=== PATIENT | female | born 1970 | race Caucasian/White ===

== ENCOUNTER 2018-03-28 22:21 | Emergency (ER) | payer OTHER ==
[2018-03-28 22:28] VITALS: BP 126/74; PULSE 94; TEMP 98.5; BMI 38.2
--- NOTE | 2018-03-28 23:44 | PDOC ---
Attending Attestation - HPI HPI: 03/28/18 23:52 The patient is a 47 year old female, with a significant PMH of DM, who presents to the emergency department with one week of neck pain. The patient denies any recent injuries or trauma. The patient states she believes the neck pain is from her tonsils secondary to pain when swallowing. The patient denies taking any medications for the neck pain. The patient denies chest pain, shortness of breath, headache and dizziness. Denies fever, chills, nausea, vomit, diarrhea and constipation. Denies dysuria, frequency, urgency and hematuria. Allergies: NKA - Physicial Exam PE: 03/28/18 23:52 GENERAL: Well developed, well nourished. Awake and alert. No acute distress. HEENT: (+) Right tonsil slightly more enlarged than left. Normocephalic, atraumatic. PERRLA, EOMI. No conjunctival pallor. Sclera are non-icteric. Moist mucous membranes. Oropharynx is clear. NECK: Supple. Full ROM. No JVD. Carotid pulses 2+ and symmetric, without bruits. No thyromegaly. No lymphadenopathy. CARDIOVASCULAR: Regular rate and rhythm. No murmurs, rubs, or gallops. Distal pulses are 2+ and symmetric. PULMONARY: No evidence of respiratory distress. Lungs clear to auscultation bilaterally. No wheezing, rales or rhonchi. ABDOMINAL: Soft. Non-tender. Non-distended. No rebound or guarding. No organomegaly. Normoactive bowel sounds. MUSCULOSKELETAL Normal range of motion at all joints. No bony deformities or tenderness. No CVA tenderness. EXTREMITIES: No cyanosis. No clubbing. No edema. No calf tenderness. SKIN: Warm and dry. Normal capillary refill. No rashes. No jaundice. NEUROLOGICAL: Alert, awake, appropriate. Cranial nerves 2-12 intact. No deficits to light touch and temperature in face, upper extremities and lower extremities. No motor deficits in the in face, upper extremities and lower extremities. Normoreflexic in the upper and lower extremities. Normal speech. Toes are down- going bilaterally. Gait is normal without ataxia. PSYCHIATRIC: Cooperative. Good eye contact. Appropriate mood and affect. <Zackary Hayden - Last Filed: 03/28/18 23:52> - Resident Resident Name: Sharyn Ahuja - ED Attending Attestation I have performed the following: I have examined & evaluated the patient, The case was reviewed & discussed with the resident, I agree w/resident's findings & plan, Exceptions are as noted - Medical Decision Making 03/29/18 00:25 Pt treated and released <Ramon Urbina - Last Filed: 03/29/18 00:25> Attestations - Attestations 03/28/18 23:54 Documentation prepared by Zackary Hayden, acting as medical nurse for Ramon Urbina DO. <Zackary Hayden - Last Filed: 03/28/18 23:52>
[2018-03-28] MEDS ORDERED: AZITHROMYCIN 500 MG TABLET PO ONE (23:51)
[2018-03-28] MEDS ORDERED: AZITHROMYCIN 500 MG TABLET ONE (23:53)
--- NOTE | 2018-03-29 00:01 | PDOC ---
History of Present Illness - General History Source: Patient Exam Limitations: No Limitations - History of Present Illness Initial Comments: 03/28/18 23:55 Patient is a 47 yo female with PMH of DM presenting to ED with complaints of "neck pain". Patient has been having the pain for about one week but it got worse today. Patient localizes the pain to the pack of her throat but states that the R side of her neck and her R ear hurt. Patient says it is hard for her to swallow. Patient also states that a chronic rash she has around her mouth and nose started to "act up". She denies fever, chills, cough, congestion, abdominal pain, N/V/D, dysuria. She started Victoza 10 days ago and says her blood sugar is not under control yet. PCP: Dr. Kelsey Chahal PMH: DM PSH: none Allergies: NKDA <Sharyn Ahuja - Last Filed: 03/28/18 23:55> <Ramon Urbina - Last Filed: 03/29/18 00:32> - General Chief Complaint: Pain Stated Complaint: PAIN Time Seen by Provider: 03/28/18 23:21 Past History - Past Medical History COPD: No Diabetes: Yes Hypercholesterolemia: Yes - Suicide/Smoking/Psychosocial Hx Smoking History: Never smoked Have you smoked in the past 12 months: No Information on smoking cessation initiated: No Hx Alcohol Use: No Drug/Substance Use Hx: No Substance Use Type: None <Sharyn Ahuja - Last Filed: 03/28/18 23:55> <Ramon Urbina - Last Filed: 03/29/18 00:32> - Past Medical History Allergies/Adverse Reactions: Allergies Allergy/AdvReac Type Severity Reaction Status Date / Time No Known Allergies Allergy Verified 03/28/18 22:28 Home Medications: Ambulatory Orders Azithromycin [Zithromax -] 250 mg PO UTDICT #6 tab 03/28/18 Review of Systems - Review of Systems Constitutional: Yes: See HPI. No: Chills, Fever HEENTM: Yes: See HPI, Ear Pain (R ear pain), Throat Pain, Difficulty Swallowing. No: Eye Pain, Ear Discharge, Nose Congestion, Throat Swelling Respiratory: No: Cough, Shortness of Breath Cardiac (ROS): No: Chest Pain, Palpitations ABD/GI: Yes: Difficulty Swallowing. No: Constipated, Diarrhea, Nausea, Poor Appetite, Vomiting, Abdominal cramping : No: Dysuria, Flank Pain, Urgency Musculoskeletal: No: Joint Pain, Muscle Pain Integumentary: Yes: See HPI, Rash (around mouth and nasolabial folds) Neurological: No: Headache, Numbness, Paresthesia <Sharyn Ahuja - Last Filed: 03/28/18 23:55> *Physical Exam - Vital Signs Last Vital Signs Temp Pulse Resp BP Pulse Ox 98.5 F 94 H 17 126/74 100 03/28/18 22:26 03/28/18 22:26 03/28/18 22:26 03/28/18 22:26 03/28/18 22:26 - Physical Exam General Appearance: Yes: Nourished, Appropriately Dressed. No: Apparent Distress HEENT: positive: Normal Voice, TMs Normal, Other (R tonsil slightly enlarged). negative: Pharyngeal Erythema, Tonsillar Exudate, Sinus Tenderness, Excessive drooling Neck: positive: Supple. negative: Tender, Decreased range of motion, Lymphadenopathy (R), Lymphadenopathy (L) Respiratory/Chest: positive: Lungs Clear, Normal Breath Sounds. negative: Crackles, Rales, Stridor, Wheezing Cardiovascular: positive: Regular Rhythm, Regular Rate, S1, S2. negative: Edema , JVD, Murmur Gastrointestinal/Abdominal: positive: Normal Bowel Sounds, Soft. negative: Tender, Rebound, Tenderness Musculoskeletal: negative: CVA Tenderness Integumentary: positive: Normal Color, Dry, Warm, Other (Erythematous papules around mouth and nasolabial folds) Neurologic: positive: flamer after lasting II-XII NML intact, Fully Oriented, Alert, Normal Mood/ Affect, Normal Response <Sharyn Ahuja - Last Filed: 03/28/18 23:55> - Vital Signs Last Vital Signs Temp Pulse Resp BP Pulse Ox 98.5 F 94 H 17 126/74 100 03/28/18 22:26 03/28/18 22:26 03/28/18 22:26 03/28/18 22:26 03/28/18 22:26 <Ramon Urbina - Last Filed: 03/29/18 00:32> ED Treatment Course - Medications Given in the ED: ED Medications Discontinued Medications Generic Name Dose Route Start Last Admin Trade Name Freq PRN Reason Stop Dose Admin Azithromycin 500 mg 03/28/18 23:51 03/28/18 23:58 Azithromycin PO 03/28/18 23:52 500 mg ONCE ONE Administration <Ramon Urbina - Last Filed: 03/29/18 00:32> *DC/Admit/Observation/Transfer <Sharyn Ahuja - Last Filed: 03/28/18 23:55> <Ramon Urbina - Last Filed: 03/29/18 00:32> Diagnosis at time of Disposition: Sore throat - Discharge Dispostion Disposition: HOME - Prescriptions Prescriptions: Azithromycin [Zithromax -] 250 mg PO UTDICT #6 tab - Referrals Referrals: Kelsey Chahal MD [Primary Care Provider] - Reuben Reilly MD [Staff Physician] - - Patient Instructions Printed Discharge Instructions: Sore Throat Additional Instructions: You were seen here today for pain in your throat and Right side of the neck and Right ear. When we looked in your mouth, we did not see any concerning abnormalities or anything concerning for an infection. Because you have diabetes and your blood sugars are not controlled just yet, we are treating you with antibiotics. I have prescribed you azithromycin 250mg pack for you to take. Please pick it up from [facility] on [facility]. Please follow up with your PCP regarding the sore throat and diabetes control. Please come back to the emergency room if: you notice that your symptoms are getting worse, if it becomes hard for you to breathe, if you develop fever or cough, if you notice any new rashes or if any new symptom develops. Thank you - Post Discharge Activity
== END 2018-03-29 00:28 | disposition home or self-care (01) ==
LOC: JER 22:21
DX: J02.9 Acute pharyngitis, unspecified (principal); E11.9 Type 2 diabetes mellitus without complications; E78.00 Pure hypercholesterolemia, unspecified
CPT/HCPCS: 99281-25

== ENCOUNTER 2019-03-19 18:50 | Emergency (ER) | payer OTHER ==
--- NOTE | 2019-03-19 18:52 | PDOC ---
Rapid Medical Evaluation Time Seen by Provider: 03/19/19 18:51 Medical Evaluation: Allergies Allergy/AdvReac Type Severity Reaction Status Date / Time No Known Allergies Allergy Verified 03/28/18 22:28 03/19/19 18:51 HPI: Diarrhea and abdominal pain x 1 week PE: No gross deficits ORDERS: Labs Discharge Disposition - Diagnosis Diarrhea - Referrals - Patient Instructions - Post Discharge Activity
[2019-03-19 18:55] VITALS: BP 145/80; PULSE 112; TEMP 98.3; BMI 33.5
== END 2019-03-19 21:25 | disposition home or self-care (01) ==
LOC: JER 18:50
DX: R10.9 Unspecified abdominal pain (principal)
CPT/HCPCS: 99281-25